=== PATIENT | female | born 1960 | race Caucasian/White ===

== ENCOUNTER → 2023-04-17 18:07 | Outpatient (REF) | payer OTHER, SELFPAY | LOC: HWWDC 18:07 | PROVIDERS: ATTENDING PHYSICIAN Family Medicine | DX: Z12.31 Encounter for screening mammogram for malignant neoplasm of breast (principal) | CPT/HCPCS: 77063; 77067 ==

== ENCOUNTER → 2023-05-31 13:18 | Outpatient (REF) | payer OTHER, SELFPAY | LOC: HWCARD 13:18 | PROVIDERS: ATTENDING PHYSICIAN Nurse Practitioner Psychiatric/Mental Health; FAMILY PHYSICIAN Family Medicine | DX: R00.2 Palpitations (principal) | CPT/HCPCS: 93005 ==

== ENCOUNTER 2024-03-04 16:10 | Emergency (ER) | payer OTHER, SELFPAY ==
[2024-03-04 16:10] VITALS: BMI 28.1
[2024-03-04 16:12] VITALS: BP 183/83
--- NOTE | 2024-03-04 16:12 | ED.GENMED ---
ED Provider Triage
<Sharon Cheng PA-C - Last Filed: 03/04/24 16:16>
-
Patient seen by provider in Triage?: Seen in Triage
Attestation: A medical screening examination has been initiated by a qualified medical provider. Based on the assessment performed at this time, it has been determined that an emergent medical condition may exist and the patient has been informed
that further medical evaluation and possible additional diagnostic testing may be needed.
HPI: 64yoF here with RLQ pain last night. Had n/v last night. Currently asymptomatic but PCP wanted her evaluated. Had a similar episode last week. Urine has been murky.
GENERAL: Alert , in no apparent distress
EYE: No visual abnormalities.
NECK: Trachea midline
ENT: No visible abnormalities.
LUNGS: No acute respiratory distress
NEUROLOGICAL: Alert and oriented
SKIN: Skin intact. No visible changes.
MUSCULOSKELETAL: Moving extremities normally
PSYCH: Normal and appropriate interaction.
This is a medical evaluation conducted in person to initiate diagnostic evaluation and provide initial therapeutics. Please see further documentation by the treating clinician.
Abdominal labs and UA ordered.
History of Present Illness
<Sharon Cheng PA-C - Last Filed: 03/04/24 16:16>
General
Chief Complaint: Abdominal Pain
Time Seen by Provider: 03/04/24 17:46
<Tony Louis PA-C - Last Filed: 03/04/24 21:57>
General
Source: patient
History of Present Illness
History of Present Illness:
64-year-old female with past medical history of hyperlipidemia and bipolar disorder presenting to the emergency department for evaluation at the request of primary care provider after she experienced nausea and vomiting, chills and right-sided flank
pain last night, symptoms improved today however had similar episode last week with symptoms also resolving at that time. Patient states that the only other symptom she has noticed today is a little bit of cloudy urine. She denies any bowel
changes, chest pain, shortness of breath, known sick contacts, recent travel or recent antibiotics. Currently also denying any urinary frequency/urgency or dysuria. Patient did not take anything for symptoms prior to arrival. No other concerns at
this time.
Past History
<Sharon Cheng PA-C - Last Filed: 03/04/24 16:16>
Past History
ED Past Medical History: Hypercholesterolemia
ED Past Surgical History: None
Social History
Tobacco: Non-smoker
Alcohol: None
Personal:
Living: with family
<Tony Louis PA-C - Last Filed: 03/04/24 21:57>
Past History
ED Past Medical History: Psychiatric
ED Past Surgical History: Tonsilectomy
Social History
Drug: None
Review of Systems
<Tony Louis PA-C - Last Filed: 03/04/24 21:57>
Review of Systems
All Other Systems: ROS reviewed and negative except as documented in HPI and ROS
Phy Exam
<Tony Louis PA-C - Last Filed: 03/04/24 21:57>
Physical Exam
Physical Exam:
GENERAL: Alert , in no apparent distress
EYE: clear conjunctiva b/l
HEAD: NCAT
ENT: o/p clr, mmm.
CARDIAC: Regular rate and rhythm .
LUNGS: Clear breath sounds bilaterally, no acute respiratory distress, no wheezes/rales/rhonchi
ABDOMEN: Soft, without focal tenderness, no r/g, no cvat
NEUROLOGICAL: Alert and oriented
SKIN: Warm and dry, skin intact.
MUSCULOSKELETAL: No edema, well perfused.
PSYCH: Normal and appropriate interaction.
Scores
<Tony Louis PA-C - Last Filed: 03/04/24 21:57>
Heart Failure Risk
Heart Failure Risk Score: Not Applicable
Heart Score for Chest Pain Patients
STEMI patient?: Not applicable
Withdrawal Assessment of Alcohol
Withdrawal Assessment Completed?: Not applicable
Course
<Sharon Cheng PA-C - Last Filed: 03/04/24 16:16>
Orders/Labs/Results
Orders:
Orders
03/04/24 16:46
Complete Blood Count/With Diff Urgent
Urinalysis Reflex To Culture Urgent
Date Specimen was Collected: 03/04/24
Time Specimen was Collected: 16:16
Urine Microscopic Reflex Cult Urgent
Urine Culture Urgent
ALAN Source: U
Specimen Description:
Date Specimen was Collected: 03/04/24
Time Specimen was Collected: 16:16
03/04/24 17:58
CT Abd/pel Without Iv Or Oral Urgent
Comment:
Reason For Exam: back pain, vomiting, UTI
03/04/24 21:00
Comprehensive Metabolic Panel Urgent
Lipase Urgent
03/04/24 21:31
Cephalexin Monohydrate [Keflex] 500 mg PO NOW STA
Abnormal Lab Results
03/04/24 03/04/24
16:46 21:00
WBC 4.3 L 10^3/uL
(4.8-10.8)
Hct 36.8 L %
(37.0-47.0)
MPV 12.2 H fL
(7.4-10.4)
Absolute Lymphs (auto) 1.1 L 10^3/uL
(1.2-3.4)
Monocytes % 9.4 H %
(1.7-9.3)
Carbon Dioxide 33 H mmol/L
(22-30)
BUN 23 H mg/dl
(7-17)
Glucose 101 H mg/dl
(70-99)
Ur Occult Blood Reflex Trace A
(Negative)
Leukocyte Esterase Rfl 1+ A
(Negative)
Urine WBC (Reflex) 11-15 A /HPF
(0-5)
Urine Bacteria (Reflex) Few A
(Negative)
Urine Albumin (Reflex) 1+ A
(Neg - Trace)
03/04/24 16:46
03/04/24 21:00
Vital Signs
Initial and Last Documented VS:
Initial Vital Signs
Temp Pulse Resp BP Pulse Ox
98.1 F 78 16 183/83 98
03/04/24 16:12 03/04/24 16:12 03/04/24 16:12 03/04/24 16:12 03/04/24 16:12
Last Documented Vital Signs
Temp Pulse Resp BP Pulse Ox
98.1 F 78 16 150/70 97
03/04/24 16:12 03/04/24 16:12 03/04/24 16:12 03/04/24 19:00 03/04/24 19:15
<Tony Louis PA-C - Last Filed: 03/04/24 21:57>
Orders/Labs/Results
Orders:
Orders
03/04/24 16:46
Complete Blood Count/With Diff Urgent
Urinalysis Reflex To Culture Urgent
Date Specimen was Collected: 03/04/24
Time Specimen was Collected: 16:16
Urine Microscopic Reflex Cult Urgent
Urine Culture Urgent
ALAN Source: U
Specimen Description:
Date Specimen was Collected: 03/04/24
Time Specimen was Collected: 16:16
03/04/24 17:58
CT Abd/pel Without Iv Or Oral Urgent
Comment:
Reason For Exam: back pain, vomiting, UTI
03/04/24 21:00
Comprehensive Metabolic Panel Urgent
Lipase Urgent
03/04/24 21:31
Cephalexin Monohydrate [Keflex] 500 mg PO NOW STA
Abnormal Lab Results
03/04/24 03/04/24
16:46 21:00
WBC 4.3 L 10^3/uL
(4.8-10.8)
Hct 36.8 L %
(37.0-47.0)
MPV 12.2 H fL
(7.4-10.4)
Absolute Lymphs (auto) 1.1 L 10^3/uL
(1.2-3.4)
Monocytes % 9.4 H %
(1.7-9.3)
Carbon Dioxide 33 H mmol/L
(22-30)
BUN 23 H mg/dl
(7-17)
Glucose 101 H mg/dl
(70-99)
Ur Occult Blood Reflex Trace A
(Negative)
Leukocyte Esterase Rfl 1+ A
(Negative)
Urine WBC (Reflex) 11-15 A /HPF
(0-5)
Urine Bacteria (Reflex) Few A
(Negative)
Urine Albumin (Reflex) 1+ A
(Neg - Trace)
03/04/24 16:46
03/04/24 21:00
Vital Signs
Initial and Last Documented VS:
Initial Vital Signs
Temp Pulse Resp BP Pulse Ox
98.1 F 78 16 183/83 98
03/04/24 16:12 03/04/24 16:12 03/04/24 16:12 03/04/24 16:12 03/04/24 16:12
Last Documented Vital Signs
Temp Pulse Resp BP Pulse Ox
98.1 F 78 16 150/70 97
03/04/24 16:12 03/04/24 16:12 03/04/24 16:12 03/04/24 19:00 03/04/24 19:15
<Tony Louis PA-C - Last Filed: 03/04/24 21:57>
MDM/Problems Addressed
Differential Diagnosis Includes:
Cystitis, pyelonephritis, renal/ureteral colic, diverticulitis, appendicitis
MDM/Problems Addressed:
64-year-old female presenting to the emergency department for evaluation after she started to experience some nausea vomiting, chills and right-sided flank pain last night, symptoms resolved today. Primary care wanted patient to come to the ER for
further evaluation. Patient asymptomatic today other than some cloudy urine. Labs and urine were initiated in triage with patient having 1+ leukocyte esterase and 11-15 WBCs. Given her flank pain will obtain a CT scan to evaluate for possible
kidney stone. Anticipate discharge home pending CT scan.
<Tony Louis PA-C - Last Filed: 03/04/24 21:57>
*Radiology
Radiology exam reviewed: radiology read reviewed
*Pulse Oximetry
Patient hypoxic: no
*Critical Care Note
Total Time (30-74mins, 75-104mins- exclusive of procedures): Not Applicable
<Tony Louis PA-C - Last Filed: 03/04/24 21:57>
Patient Management
Escalation/DeEscalation of care consider admission/obs:
Patient CT scan findings as below:
IMPRESSION:
Contracted gallbladder, though though there appears to be diffuse wall thickening, with indistinct margins. Recommend clinical correlation to exclude the possibility of cholecystitis.
No bile duct dilatation.
Advanced fatty infiltration in the pancreatic head. Otherwise mild pancreatic parenchymal atrophy. No adjacent or surrounding inflammatory soft tissue stranding.
Mild to moderate colonic fecal burden most pronounced in the ascending colon and transverse colon. No dilated bowel loops or evidence to suggest bowel obstruction.
Normal appendix.
Patient has no leukocytosis, no elevation of her LFTs and no pain to the right upper quadrant. I do not suspect cholecystitis as a potential cause for symptoms. I had extensive conversation with patient in regards to symptoms of possible
cholelithiasis versus cholecystitis and she expressed understanding. We did discuss some dietary modifications as well. Given patient's UA findings we will treat for a urinary tract infection. She will follow-up with primary care provider.
Otherwise stable for discharge home.
ED Attending Note
<Sharon Cheng PA-C - Last Filed: 03/04/24 16:16>
-
Portions of this chart may have been created with voice recognition software.� Occasional wrong word or��sound alike� substitutions may have occurred due to the inherent limitations of voice recognition software.
Discharge Plan
Departure
Patient Disposition: Home (Routine Discharge)
Date of Disposition: 03/04/24
Time of Disposition: 20:50
Patient with high blood pressure during this ER visit?: Yes
Discharge Problem:
UTI (urinary tract infection)
Instructions: Urinary tract infection in adults - ED discharge instructions
Prescriptions:
New
cephalexin 500 mg capsule
500 mg PO BID 7 Days Qty: 14 0RF
No Action
lamotrigine [Lamictal] 200 MG tablet
200 mg PO HS
quetiapine [Seroquel] 300 MG tablet
300 mg PO HS
clonazepam 0.5 MG tablet
0.5 mg PO PRN
Patient Comments:
PT TAKES PRN FOR SLEEP
simvastatin 40 MG tablet
40 mg PO HS
Referrals:
Nicki Godinez DO [Family Provider] -
Interventions
Interventions:
*Risk Screen - Suicide Last Done: 03/04/24 16:15
*General Assessment Last Done: 03/04/24 16:15
*Neglect/Abuse Screening Last Done: 03/04/24 16:15
ED- Fall Risk Assessment Last Done: 03/04/24 21:48
*ED COVID-19 Vaccine History Last Done: 03/04/24 16:15
*Nursing Disposition Last Done: 03/04/24 21:48
BW-Mgdxhd-Njeiubfohd Assessment Last Done: 03/04/24 17:55
Discharge Date and Time
Discharge Date/Time: 03/04/24 21:49
Print Language: [id number]
[2024-03-04 17:00] LABS: % Basophils 1.2 % (0-2); % Eosinophils 1.4 % (0-6); % Immature Granulocytes 0.2 % (0-0.5); % Lymphocytes 24.8 % (20.5-51.1); % Monocytes 9.4 % (1.7-9.3); Absolute Basophils 0.1 10^3/uL (0-0.2); Absolute Eosinophils 0.1 10^3/uL (0-0.7); Absolute Lymphocytes 1.1 10^3/uL (1.2-3.4); Absolute Monocytes 0.4 10^3/uL (0.1-0.6); Absolute Neutrophils 2.7 10^3/uL (1.4-6.5); Hematocrit 36.8 % (37.0-47.0); Hemoglobin 12.5 g/dL (12.0-16.0); Mean Corpuscular Hgb 29.7 pg (27.0-31.0); Mean Corpuscular Volume 87.4 fL (81.0-99.0); Mean Platelet Volume 12.2 fL (7.4-10.4); Nucleated Red Blood Cells % 0 %; Platelet Count 204 10^3/uL (130-400); Red Blood Cell Count 4.21 10^6/uL (4.20-5.40); Red Cell Dist. Width 12.8 % (11.5-14.5); White Blood Cell Count 4.3 10^3/uL (4.8-10.8)
[2024-03-04 17:03] LABS: Urine Albumin 1+ (Neg - Trace); Urine Bilirubin Negative (Negative); Urine Character Slightly Cloudy (Clear); Urine Color Yellow; Urine Glucose Negative (Negative); Urine Ketone Negative (Negative); Urine Leukocyte 1+ (Negative); Urine Nitrite Negative (Negative); Urine Occult Blood Trace (Negative); Urine Urobilinogen Negative (Neg - 1+)
[2024-03-04 17:16] LABS: Urine Red Blood Cell 0-2 /HPF (0-2); Urine Squamous Cell 0-2 /LPF (Few)
[2024-03-04 17:17] LABS: Urine Amorphous Seen; Urine Bacteria Few (Negative); Urine Triple Phosphate Crystal Present
[2024-03-04 17:56] VITALS: BP 148/69
[2024-03-04 18:00] VITALS: BP 141/66
[2024-03-04 19:00] VITALS: BP 150/70
[2024-03-04 21:26] LABS: ALT (SGPT) 19 U/L (0-35); AST (SGOT) 26 U/L (14-36); Alkaline Phosphatase 85 U/L (38-126); Blood Urea Nitrogen 23 mg/dl (7-17); Calcium 9.9 mg/dl (8.4-10.2); Carbon Dioxide 33 mmol/L (22-30); Chloride 100 mmol/L (98-107); Estimated Creatinine Clearance 66 ml/min; Glucose 101 mg/dl (70-99); Lipase 55 U/L (23-300); Potassium 4.7 mmol/L (3.5-5.1); Sodium 139 mmol/L (135-145); Total Bilirubin 0.8 mg/dl (0.2-1.3); Total Protein 7.6 g/dl (6.3-8.2); eGFR > 60.00
[2024-03-04] MEDS: KEFLEX 500 MG PO (21:38)
== END 2024-03-04 21:49 | disposition home or self-care (01) ==
LOC: EMR 16:10
PROVIDERS: Physician Assistant; EMERGENCY PHYSICIAN Emergency Medicine; FAMILY PHYSICIAN Family Medicine
DX: N39.0 Urinary tract infection, site not specified (principal); R03.0 Elevated blood-pressure reading, without diagnosis of hypertension; E78.00 Pure hypercholesterolemia, unspecified; F31.9 Bipolar disorder, unspecified
CPT/HCPCS: 99284; 74176; 80053; 81003; 81015; 83690; 85025; 87086; 87147

== ENCOUNTER → 2024-12-22 13:08 | Outpatient (REF) | payer OTHER, SELFPAY | LOC: PET 13:08 | PROVIDERS: ATTENDING PHYSICIAN Internal Medicine Interventional Cardiology | DX: R06.09 Other forms of dyspnea (principal) | CPT/HCPCS: 78431; A9555; J2785 ==

== ENCOUNTER → 2025-01-05 13:55 | Outpatient (REF) | payer OTHER, SELFPAY | LOC: HWRCS 13:55 | PROVIDERS: ATTENDING PHYSICIAN Internal Medicine Interventional Cardiology; FAMILY PHYSICIAN Family Medicine | DX: R06.02 Shortness of breath (principal); F31.9 Bipolar disorder, unspecified | CPT/HCPCS: 93306 ==